=== PATIENT | male | born 1980 | race Caucasian/White ===

== ENCOUNTER 2024-11-13 21:10 | Emergency (ER) | payer BC, SELFPAY ==
[2024-11-13 21:12] VITALS: BP 156/112
[2024-11-13 22:23] VITALS: BP 139/87
[2024-11-13 22:27] VITALS: BMI 34.3
--- NOTE | 2024-11-13 22:39 | ED.GENMED ---
History of Present Illness
<Antonella Muniz MD, Resident - Last Filed: 11/14/24 00:38>
General
Chief Complaint: Change in Mental Status
Source: patient
Time Seen by Provider: 11/13/24 22:37
Nursing documentation reviewed up to this point in time: agreed with
History of Present Illness
History of Present Illness:
43-year-old male with past medical history of ADHD, anxiety, depression, incident of amnesia in 2019, comes to the ED due to recent amnesia episode that began on Thursday. Patient does not remember doing anything since Thursday, feels like it
still Thursday. He says that his could not find him yesterday and he may have been driving around but he does not remember doing so. He does not have any headaches, chest pain, shortness of breath, heart palpitations, syncope,
lightheadedness. He does not even remember you having anything to eat, and feels very hungry right now. He does not drink any alcohol, but does occasionally smoke marijuana. Patient says that this current incident is very similar to his prior
episode of amnesia that he had in 2020 in [place]. He says that he was worked up with a neurologist and had an MRI of his brain at that time which did not show any acute abnormalities. Currently he is feeling much better and states that he is
recovering well. He states that he was recently started on Strattera for his ADHD around a month or 2 ago.
Past History
<Antonella Muniz MD, Resident - Last Filed: 11/14/24 00:38>
Past History
ED Past Medical History: Psychiatric (ADHD, depression, anxiety) and Other (Amnesia episode in 2019)
Review of Systems
<Antonella Muniz MD, Resident - Last Filed: 11/14/24 00:38>
Review of Systems
Allergies reviewed?: Yes
Constitutional: Reports no symptoms
EENT: Reports no symptoms
Respiratory: Reports no symptoms
Cardiac: Reports no symptoms
ABD/GI: Reports no symptoms
: Reports no symptoms
Musculoskeletal: Reports no symptoms
Skin: Reports no symptoms
Neurological: Reports other (Memory loss)
Endocrine: Reports no symptoms
Hematologic/Lymphatic: Reports no symptoms
Psychiatric: Reports anxiety
Phy Exam
<Antonella Muniz MD, Resident - Last Filed: 11/14/24 00:38>
General Physical Exam
General Presentation: well appearing and no apparent distress
General Skin: warm and dry
General Habitus: normal
General Mental: alert
General Hydration: appears well hydrated
Cardiovascular Exam
Cardiovascular Exam: regular rate/rhythm, no edema and no murmur
Pulmonary Exam
Pulmonary Exam: lungs clear, no respiratory distress, no crackles and no wheezing
Gastrointestinal Exam
Gastrointestinal Exam: normal bowel sounds, non tender, soft and non distended
Neurological Exam
Neurological Exam: alert, oriented x3, speech normal, normal gait and other (Memory loss starting Thursday around 7:30 PM)
Skin Exam
Skin Exam: normal color, warm/dry and no rash
Course
<Antonella Muniz MD, Resident - Last Filed: 11/14/24 00:38>
Orders/Labs/Results
Orders:
Orders
11/13/24 22:57
Electrocardiogram (*1) Urgent
Reason for Study: Other
Other Reason for Exam: Amnesia
EKG- Treatment ONCE
11/13/24 23:42
Complete Blood Count/With Diff Urgent
Comprehensive Metabolic Panel Urgent
11/14/24 00:13
CT Head W/o Iv Contrast Urgent
Reason For Exam: Amnesia, Altered Mental Status
11/13/24 23:42
11/13/24 23:42
Vital Signs
Initial and Last Documented VS:
Initial Vital Signs
Temp Pulse Resp BP Pulse Ox
97.6 F 118 24 156/112 98
11/13/24 21:12 11/13/24 21:12 11/13/24 21:12 11/13/24 21:12 11/13/24 21:12
Last Documented Vital Signs
Temp Pulse Resp BP Pulse Ox
97.6 F 78 23 110/67 96
11/13/24 21:12 11/13/24 23:00 11/13/24 23:00 11/13/24 23:00 11/13/24 23:06
<Geovanny Swanson DO - Last Filed: 11/14/24 00:21>
Orders/Labs/Results
Orders:
Orders
11/13/24 22:57
Electrocardiogram (*1) Urgent
Reason for Study: Other
Other Reason for Exam: Amnesia
EKG- Treatment ONCE
11/13/24 23:42
Complete Blood Count/With Diff Urgent
Comprehensive Metabolic Panel Urgent
11/14/24 00:13
CT Head W/o Iv Contrast Urgent
Reason For Exam: Amnesia, Altered Mental Status
11/13/24 23:42
11/13/24 23:42
Vital Signs
Initial and Last Documented VS:
Initial Vital Signs
Temp Pulse Resp BP Pulse Ox
97.6 F 118 24 156/112 98
11/13/24 21:12 11/13/24 21:12 11/13/24 21:12 11/13/24 21:12 11/13/24 21:12
Last Documented Vital Signs
Temp Pulse Resp BP Pulse Ox
97.6 F 78 23 110/67 96
11/13/24 21:12 11/13/24 23:00 11/13/24 23:00 11/13/24 23:00 11/13/24 23:06
<Antonella Muniz MD, Resident - Last Filed: 11/14/24 00:38>
MDM/Problems Addressed
Differential Diagnosis Includes:
Transient global amnesia, electrolyte imbalance, anxiety induced amnesia, intracranial abnormality
MDM/Problems Addressed:
43-year-old male with past medical history of ADHD, anxiety, depression and amnesia comes to the ED due to recent episode of amnesia.
Will check electrolytes, CBC
Will get head CT to rule out any intracranial process
Patient is recovering well following his incident and will most likely have to follow-up with neurology in the outpatient setting for further workup
No abnormalities seen on CBC/CMP
CT on preliminary view does not show any acute abnormalities
Chronic conditions affecting care: Neurological disorder and Psychiatric illness
<Antonella Muniz MD, Resident - Last Filed: 11/14/24 00:38>
*Pulse Oximetry
SaO2: 96
Oxygen Mode of Delivery: Room air
Patient hypoxic: no
*Critical Care Note
Total Time (30-74mins, 75-104mins- exclusive of procedures): Not Applicable
ED Attending Note
<Antonella Muniz MD, Resident - Last Filed: 11/14/24 00:38>
-
Portions of this chart may have been created with voice recognition software.� Occasional wrong word or��sound alike� substitutions may have occurred due to the inherent limitations of voice recognition software.
<Geovanny Swanson, DO - Last Filed: 11/14/24 00:21>
ED Attending Note
Patient seen and examined by attending physician: Yes
I performed a history and physical exam of patient and discussed management with resident, I reviewed resident's note and agree with documented findings and plan of care.: Yes
ED Attending Note:
Seen with resident examined independently 43-year-old male with mental illness prior episode of memory loss, presents with an episode of memory loss had a full workup previously, t medications reviewed, will check labs CT of the head provide
reassurance
Discharge Plan
Departure
Prescriptions:
No Action
atomoxetine [Strattera] 25 mg Capsule
50 mg PO ONCE
Auvelity 45-105 mg Tablet, Ir And Er, Biphasic
1 tab PO DAILY
Referrals:
NONE,* [Family Provider, Internal Medicine]
Interventions
Interventions:
*Risk Screen - Suicide Last Done: 11/13/24 21:12
*General Assessment Last Done: 11/13/24 22:27
*Neglect/Abuse Screening Last Done: 11/13/24 21:12
*ED- Fall Risk Assessment Last Done: 11/13/24 22:27
*ED COVID-19 Vaccine History Last Done: 11/13/24 22:27
ED- Pulmonary Assessment Last Done: 11/13/24 23:45
ED-Psychological Assessment Last Done: 11/13/24 22:27
ED- Neurological Assessment Last Done: 11/13/24 23:45
ED- Cardiac Assessment Last Done: 11/13/24 23:45
ED Swallowing Screen Last Done: 11/13/24 22:27
Discharge Date and Time
Print Language: MAORI
[2024-11-13 23:00] VITALS: BP 110/67
[2024-11-13 23:49] LABS: Hematocrit 43.0 % (39.0-52.0); Hemoglobin 15.3 g/dL (13.0-18.0); Mean Corp Hgb Conc. 35.6 g/dL (33.0-37.0); Mean Corpuscular Volume 85.0 fL (80.0-94.0); Nucleated Red Blood Cells % 0 % (-); Platelet Count 185 10^3/uL (130-400); Red Cell Dist. Width 13.2 % (11.5-14.5)
[2024-11-14 00:24] LABS: ALT (SGPT) 24 U/L (0-50); AST (SGOT) 26 U/L (17-59); Albumin 4.5 g/dl (3.5-5.0); Alkaline Phosphatase 65 U/L (38-126); Blood Urea Nitrogen 18 mg/dl (9-20); Calcium 9.6 mg/dl (8.4-10.2); Carbon Dioxide 25 mmol/L (22-30); Chloride 106 mmol/L (98-107); Estimated Creatinine Clearance 112 ml/min; Glucose 93 mg/dl (70-99); Potassium 4.2 mmol/L (3.5-5.1); Sodium 138 mmol/L (135-145); Total Protein 7.3 g/dl (6.3-8.2); eGFR > 60.00
[2024-11-14 01:00] VITALS: BP 112/74
== END 2024-11-14 01:28 | disposition home or self-care (01) ==
LOC: EMR 21:10
PROVIDERS: EMERGENCY PHYSICIAN Emergency Medicine
DX: G45.4 Transient global amnesia (principal)
CPT/HCPCS: 99284; 70450; 80053; 85025; 93005